=== PATIENT | female | born 1995 | race Caucasian/White ===

== ENCOUNTER 2020-02-20 19:49 | Emergency (ER) | payer SELFPAY ==
--- NOTE | 2020-02-20 19:51 | ECG_ITS ---
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 Measurements Intervals [place] Rate: 83 P: 58 RI: 147 QRS: 74 QRSD: 92 T: 38 QT: 361 QTc: 426 Interpretive Statements SINUS RHYTHM POSSIBLE RIGHT VENTRICULAR CONDUCTION DELAY [RSR (QR) IN V1/V2] No previous ECG available for comparison Electronically Signed On 02-21-2020 20:12:10 CDT by Marco Shaikh M.D. [id number]
[2020-02-20 20:00] VITALS: BP 132/83; PULSE 102; RESP 18; TEMP 37.3; O2SAT 100
[2020-02-20 20:24] LABS: Basophils # 0.1 10^3/uL (0.0-0.1); Basophils % 1.8 %; Eosinophils # 0.1 10^3/uL (0.0-0.8); Eosinophils % 2.2 %; Hematocrit 25.4 % (37.0-47.0); Hemoglobin 6.7 g/dL (11.5-15.3); Lymphocytes # 1.3 10^3/uL (0.8-4.8); Lymphocytes % 25.9 %; Mean Corpuscular HGB Conc 26.4 g/dL (30.0-36.0); Mean Corpuscular Hemoglobin 16.4 pg (28.0-34.0); Mean Corpuscular Volume 62.3 fL (81-99); Mean Platelet Volume 8.9 fL (7.4-10.4); Monocytes # 0.4 10^3/uL (0.2-0.9); Neutrophils # 3.08 10^3/uL (1.8-7.7); Neutrophils % 61.9 %; Nucleated Red Blood Cells % 0 %; Platelet Count 477 10^3/cmm (130-400); Red Blood Count 4.08 10^6/uL (4.1-5.3); Red Cell Distribution Width 17.8 % (12.1-15.1)
[2020-02-20 20:26] VITALS: BP 110/78; PULSE 90; RESP 16; O2SAT 100
--- NOTE | 2020-02-20 20:26 | ED_ITS ---
HPI - Syncope General: Chief Complaint: Syncope Stated Complaint: syncope/numbness & tingling Time Seen by Provider: 02/20/20 20:18 History of Present Illness: HPI narrative: Patient comes in with syncope and weakness dizziness over the last 2 months progressively getting worse. Has a history of anemia need for blood transfusions. Feels that she is at that point now. complaint: almost passed out Onset (ago): month(s) Associated symptoms: Reports headache(s) and lightheadedness; Deny abdominal pain, chest pain, fever(s) or nausea Review of Systems Const: Denies: fever(s), chills or body aches Eyes: Denies: change in vision or blurry vision ENMT: Denies: throat pain or nasal congestion Card: Reports: lightheadedness and other (Near syncope); Denies: chest pain or dyspnea on exertion Resp: Denies: dyspnea, productive cough or non-productive cough GI: Denies: abdominal pain, nausea or vomiting Musc: Denies: extremity pain Skin/Breast: Denies: rash Neuro: Reports: headache(s) and other (Weakness) Psych: Denies: anxiety or depression [place]/Lymph: Denies: easy bruising [facility] ED Female Reproductive History: Date of last menstrual period: 02/10/20 Physical Exam Const: COMMON NORMALS: no acute distress, average body habitus and patient oriented x3 HENMT: COMMON NORMALS: normocephalic HEAD & SCALP: normal to inspection and normocephalic FACE & SINUS: normal facial exam Eye: GENERAL EYE: appearance normal, both eyes and all related structures VISUAL ACUITY: Yes other (Pale conjunctive ) Neck/C-Spine: COMMON NORMALS: no JVD Chest: COMMONS NORMALS: normal inspection of the chest Resp: COMMON NORMALS: normal respiratory effort and clear to auscultation bilaterally AUSCULTATION: clear to auscultation bilaterally Cardio: COMMON NORMALS: no JVD, regular rate and regular rhythm RATE: regular rate RHYTHM: regular rhythm GI: COMMON NORMALS: Normal to inspection, nondistended, normoactive bowel sounds present Extremity: COMMON NORMALS: normal to inspection and full ROM Neuro: COMMON NORMALS: patient oriented x3 Course Vital Signs: Vital signs: Vital Signs Temperature 99.2 F 02/20/20 20:00 Pulse Rate 90 02/20/20 20:26 Respiratory Rate 16 07/23/20 20:26 Blood Pressure 110/78 02/20/20 20:26 Pulse Oximetry 100 02/20/20 20:26 MDM - Syncope Lab Data: Labs: Lab Results 02/20/20 Range/Units 20:15 WBC 5.0 (4.0-10.0) 10^3/ uL RBC 4.08 L (4.1-5.3) 10^6/u L Hgb 6.7 L (11.5-15.3) g/dL Hct 25.4 L (37.0-47.0) % MCV 62.3 L (81-99) fL MCH 16.4 L (28.0-34.0) pg MCHC 26.4 L (30.0-36.0) g/dL RDW 17.8 H (12.1-15.1) % Plt Count 477 H (130-400) 10^3/c mm MPV 8.9 (7.4-10.4) fL Neut % (Auto) 61.9 % Lymph % (Auto) 25.9 % [place] % (Auto) 8.0 % Eos % (Auto) 2.2 % Baso % (Auto) 1.8 % Neut # (Auto) 3.08 (1.8-7.7) 10^3/u L Lymph # (Auto) 1.3 (0.8-4.8) 10^3/u L [place] # (Auto) 0.4 (0.2-0.9) 10^3/u L Eos # (Auto) 0.1 (0.0-0.8) 10^3/u L Baso # (Auto) 0.1 (0.0-0.1) 10^3/u L Nucleated RBC % (a uto) 0 % Nucleated RBCs # 0.0 /100WBC Discharge Plan Discharge Prescriptions: No Action No Known Home Medications RF: 0 Coding Level of Care Code ED Welt Butter Hand for [employer] Fwd Exam Comprehensive
[2020-02-20 20:43] LABS: Alanine Aminotransferase 12 U/L (0-33); Albumin Level 5.1 g/dL (3.5-5.2); Alkaline Phosphatase 40 IU/L (35-105); Anion Gap 14.7 (5-19); Aspartate Amino Transferase 26 U/L (0-32); Blood Urea Nitrogen 11 mg/dL (6-20); Calcium 9.5 mg/dL (8.5-10.5); Carbon Dioxide 25 mmol/L (22-29); Chloride 101 mmol/L (98-107); Glucose 109 mg/dL (65-115); Osmolality Calculated 281 mOsm/kg (285-295); Potassium 3.7 mmol/L (3.5-5.1); Sodium 137 mmol/L (136-145); Total Bilirubin 0.2 mg/dL (0.15-1.2); Total Protein 8.1 g/dL (6.6-8.7)
[2020-02-20 20:48] VITALS: BP 119/68; PULSE 90; RESP 14; O2SAT 100
[2020-02-20] MEDS: sodium chloride 0.9% 1,000 ML 999 ML IV (21:06)
[2020-02-20 21:07] VITALS: BP 118/56; PULSE 89; RESP 18; O2SAT 93
[2020-02-20 21:55] VITALS: BP 120/67; PULSE 87; RESP 16; O2SAT 99
[2020-02-20 23:26] VITALS: BP 108/68; PULSE 87; RESP 16; O2SAT 99
[2020-02-20 23:50] LABS: HCG, Serum Qual Negative (Negative)
[2020-02-21] VITALS (18 sets, daily range): BP systolic 91–114; BP diastolic 44–75; PULSE 70–98; RESP 14–16; TEMP 36.6–37; O2SAT 97–100
[2020-02-21] MEDS: sodium chloride 0.9% 500 ML 75 ML IV (01:56)
== END 2020-02-21 06:57 | disposition home or self-care (01) ==
PROVIDERS: Emergency Medicine; Emergency Provider Nurse Practitioner Family
DX: R55 Syncope and collapse (principal)
CPT/HCPCS: 12345; 36415; 36430; 80053; 80500; 84703; 85025; 86850; 86870; 86900; 86902; 86920; 93005; 96360; 96361; 99284; J7030; J7040; P9016

== ENCOUNTER 2020-02-22 00:11 | Emergency (ER) | payer SELFPAY ==
[2020-02-22] VITALS (7 sets, daily range): BP systolic 107–126; BP diastolic 55–82; PULSE 57–69; RESP 14–18; TEMP 36.6; O2SAT 95–100; BMI 18.6
--- NOTE | 2020-02-22 00:27 | CTR_ITS ---
PROCEDURE INFORMATION: Exam: CT Head Without Contrast Exam date and time: 02/22/2020 12:30 AM Age: 24 years old Clinical indication: Patient HX: General weakness. Headache. Recent anemia. Dizziness. TECHNIQUE: Imaging protocol: Computed tomography of the head without contrast. Radiation optimization: All CT scans at this facility use at least one of these dose optimization techniques: automated exposure control; mA and/or kV adjustment per patient size (includes targeted exams where dose is matched to clinical indication); or iterative reconstruction. COMPARISON: No relevant prior studies available. RADIATION DOSE METRICS: Total DLP (mGy-cm): 656.68 FINDINGS: Brain: No acute intracranial hemorrhage or mass effect. No definite acute infarct by CT. MRI could be more sensitive/specific for detection, as clinically directed. Ventricles: Ventricle size is normal for age. Bones/joints: No definite acute skull fracture. Sinuses: Included paranasal sinuses are essentially clear. Mastoid air cells: No significant acute finding. CT/CT head wo con* [id number] IMPRESSION: 1. No acute intracranial hemorrhage or mass effect. 2. No definite acute infarct by CT, see above. 3. Other findings discussed above. Radiation Dose CTDIVOL = (mGy): DLP = 656.68 (mGy-cm)
[2020-02-22 01:08] LABS: Basophils # 0.1 10^3/uL (0.0-0.1); Basophils % 1.7 %; Eosinophils # 0.2 10^3/uL (0.0-0.8); Eosinophils % 2.2 %; Hematocrit 34.3 % (37.0-47.0); Hemoglobin 9.5 g/dL (11.5-15.3); Lymphocytes # 2.4 10^3/uL (0.8-4.8); Lymphocytes % 30.8 %; Mean Corpuscular HGB Conc 27.7 g/dL (30.0-36.0); Mean Corpuscular Hemoglobin 19.3 pg (28.0-34.0); Mean Corpuscular Volume 69.9 fL (81-99); Mean Platelet Volume 9.1 fL (7.4-10.4); Monocytes # 0.5 10^3/uL (0.2-0.9); Monocytes % 6.7 %; Neutrophils # 4.54 10^3/uL (1.8-7.7); Neutrophils % 58.5 %; Nucleated Red Blood Cells % 0 %; Platelet Count 411 10^3/cmm (130-400); Red Blood Count 4.91 10^6/uL (4.1-5.3); Red Cell Distribution Width 24.9 % (12.1-15.1); White Blood Count 7.8 10^3/uL (4.0-10.0)
[2020-02-22 01:14] LABS: HCG, Serum Qual Negative (Negative)
[2020-02-22 01:28] LABS: Add Urine Microscopic? YES; Bilirubin Urine Neg (NEGATIVE); Blood Urine 3+ (Negative); Glucose Urine UA Norm (Normal); Ketones Urine Negative (Negative); Leukocyte Esterase Urine Negative (Negative); Nitrate Urine Negative (Negative); Protein Urine Neg (Negative); RBC Urine >100 /hpf (0-2); Squamous Epithelial Cell Urine RARE (0-5); Urine Appearance Cloudy (CLEAR); Urine Color Yellow (Yellow); Urobilinogen Urine Norm (Negative); pH Urine 7 (5-7)
[2020-02-22 01:46] LABS: Alanine Aminotransferase 14 U/L (0-33); Albumin Level 4.9 g/dL (3.5-5.2); Alkaline Phosphatase 40 IU/L (35-105); Anion Gap 13.1 (5-19); Aspartate Amino Transferase 28 U/L (0-32); Blood Urea Nitrogen 7 mg/dL (6-20); Calcium 9.6 mg/dL (8.5-10.5); Carbon Dioxide 24 mmol/L (22-29); Chloride 106 mmol/L (98-107); Globulin 2.7 g/dL (1.3-4.6); Glucose 89 mg/dL (65-115); Magnesium 2.1 mg/dL (1.7-2.3); Osmolality Calculated 283 mOsm/kg (285-295); Phosphorus 2.9 mg/dL (2.5-4.5); Potassium 4.1 mmol/L (3.5-5.1); Sodium 139 mmol/L (136-145); Thyroid Stimulating Hormone 2.56 uIU/mL (0.27-4.20); Total Bilirubin 0.2 mg/dL (0.15-1.2); Total Protein 7.6 g/dL (6.6-8.7)
--- NOTE | 2020-02-22 01:50 | USR_ITS ---
PROCEDURE INFORMATION: Exam: US Nonobstetric Pelvis; Complete Exam date and time: 02/22/2020 2:32 AM Age: 24 years old Clinical indication: Other: Bleeding; Additional info: Vaginal bleeding TECHNIQUE: Imaging protocol: Transabdominal pelvic nonobstetric ultrasound. Complete exam. Real time ultrasound with image documentation. COMPARISON: CT abdomen pelvis w con* [id number] 03/13/2015 10:54 AM FINDINGS: The uterus measures 8.5 cm in length. There is no visible focal uterine mass. There is no intrauterine fluid. Endometrial thickness is 8.9 mm. Mild to moderate amount relatively sonolucent cul-de-sac fluid. fluid. The right ovary measures 35 x 22 x 27 mm, estimated volume 10.6 cc. The right ovary appears essentially unremarkable. The left ovary measures 40 x 18 x 26 mm, estimated volume 10.0 cc. The left ovary contains a 23 x 11 x 15 mm dominant follicle versus small cyst. Significance uncertain due to relatively small size. Blood flow detected in each ovary. The urinary bladder was not completely evaluated/imaged at this time. US/US pelvic complete* [id number] IMPRESSION: 1. The left ovary contains a 23 x 11 x 15 mm dominant follicle versus small cyst. Significance uncertain due to relatively small size. 2. Mild to moderate amount relatively sonolucent cul-de-sac fluid. fluid. 3. Other details discussed above.
[2020-02-22] MEDS: ondansetron 2 mg/ML SDV 2 mL 4 MG IVP (02:23)
[2020-02-22 02:31] LABS: C Reactive Protein 0.3 mg/L (0.0-4.9)
[2020-02-22 02:33] LABS: Ferritin 5 ng/mL (15-150)
--- NOTE | 2020-02-22 03:55 | MRR_ITS ---
PROCEDURE INFORMATION: Exam: MR Head Without Contrast Exam date and time: 02/22/2020 3:56 AM Age: 24 years old Clinical indication: Dizziness; Additional info: Dysarthria, R sided weakness TECHNIQUE: Imaging protocol: MR of the head without contrast. COMPARISON: CT head wo con* [id number] 02/22/2020 1:05 AM FINDINGS: Brain: Normal. No acute infarct. No hemorrhage. No significant white matter disease. No edema. Ventricles: Normal. No ventriculomegaly. Bones/joints: Unremarkable. Sinuses: Normal as visualized. No acute sinusitis. Mastoid air cells: Normal as visualized. No mastoid effusion. Orbits: Unremarkable. Soft tissues: Unremarkable. MR/MR head wo con* [id number] IMPRESSION: No acute findings.
--- NOTE | 2020-02-22 04:35 | PC.NURSE ---
back from MRI
[2020-02-22 05:39] LABS: Add Urine Culture? Yes
--- NOTE | 2020-02-23 02:34 | W.ED.WEAKNES ---
HPI - Weakness General: Chief complaint: Weakness Stated complaint: recheck/was here yesterday/nausea Time Seen by Provider: 02/22/20 00:50 History of Present Illness: HPI Narrative: 4-year-old female presents with generalized weakness. She was here hours or so prior with similar symptoms. She had generalized weakness, more pronounced on the right side of her body. She was also slurring some speech, and speaking quite slowly. She is very tired, and her family was concerned symptoms were getting worse. They brought her in tonight for recheck. Last night she received 2 units of packed red blood cells for a hemoglobin of 6.7 or so. MD Complaint: generalized weakness, focal weakness and numbness Onset (ago): day(s) Duration: constant Location: generalized, RUE and RLE Severity: moderate Quality: tingling and numbness Relieving factors: none Exacerbating factors: exertion Context: recent illness and history of similar Associated symptoms: Reports headache(s), nausea and short of breath; Denies chest pain, confusion, diaphoresis, dysuria or vomiting Review of Systems Const: Denies: diaphoresis Eyes: Denies: change in vision or blurry vision ENMT: Denies: swelling of lips/tongue, change in hearing, post nasal drip or sinus pain Card: Reports: dyspnea on exertion; Denies: chest pain, palpitations, irregular heart rhythm or edema Resp: Reports: dyspnea; Denies: productive cough, non-productive cough or wheezing GI: Reports: nausea; Denies: vomiting : Reports: vaginal bleeding; Denies: dysuria or hematuria Musc: Denies: neck pain or joint warmth Skin/Breast: Denies: rash, pruritus or erythema Neuro: Reports: headache(s); Denies: confusion Psych: Denies: anxiety, visual hallucinations or auditory hallucinations [facility] Female Reproductive History: Date of last menstrual period: 02/10/20 Physical Exam Const: GENERAL APPEARANCE: well developed ORIENTATION/CONSCIOUSNESS: Yes oriented to person, Yes oriented to place and Yes oriented to time HENMT: COMMON NORMALS: normocephalic, external ears normal and Normal external nose present HEAD & SCALP: normocephalic FACE & SINUS: normal facial exam NOSE: Normal external nose present and No nasal discharge present EXTERNAL EAR: Yes external ears normal MOUTH: tongue normal Eye: COMMON NORMALS: Equal, round and reactive pupils present, EOMs intact bilaterally and conjunctivae normal EYELID: eyelids normal CONJUNCTIVA: Yes conjunctivae normal PUPIL: Yes Equal, round and reactive pupils present Neck/C-Spine: COMMON NORMALS: full ROM GENERAL: No tracheal deviation CERVICAL SPINE: Yes normal cervical lordosis and No Cervical spine tenderness Chest: COMMONS NORMALS: normal inspection of the chest CHEST: No tenderness Resp: COMMON NORMALS: clear to auscultation bilaterally EFFORT & INSPECTION: No tachypneic, No respiratory distress, No retractions, No uses accessory muscles and No tracheal deviation AUSCULTATION: clear to auscultation bilaterally, no rhonchi, no wheezes and lung sounds not diminished Cardio: COMMON NORMALS: regular rate and regular rhythm RATE: regular rate RHYTHM: regular rhythm HEART SOUNDS: no murmurs PERIPHERAL PULSES: radial pulses present GI: INSPECTION: No abdominal distension AUSCULTATION: No Hyperactive bowel sounds present and No Hypoactive bowel sounds present PALPATION: No Guarding due to palpation present (GI) and No Rigid due to palpation PERCUSSION: no dullness to percussion and no tympanic to percussion Neuro: SENSORIUM/ORIENTATION: Yes oriented to person, Yes oriented to place and Yes oriented to time CRANIAL NERVES: Yes CN normal except as noted COORDINATION/BALANCE: [id number] test normal SPEECH: abnormal speech (Mild dysarthria) GAIT: Yes Unable to assess gait SENSORY EXAM: No sensory level loss detected MOTOR EXAM: Pronator motor function not present, Normal motor muscle tone present throughout and Motor abnormalities not present COORDINATION: [id number] test normal Psych: COMMON NORMALS: mental status grossly normal Skin: COMMON NORMALS: no rashes or lesions noted GENERAL SKIN EXAM: no rashes or lesions noted Course Vital Signs: Vital signs: Vital Signs Temperature 97.9 F 02/22/20 00:34 Pulse Rate 64 02/22/20 06:07 Respiratory Rate 14 02/22/20 06:07 Blood Pressure 110/64 02/22/20 06:07 Pulse Oximetry 95 02/22/20 06:07 MDM - Weakness MDM Narrative: Medical decision making narrative: 24-year-old female. Her hemoglobin was quite low last night. It is risen appropriately after 2 units of PRBCs given last night. Her hemoglobin is now 9.5. Platelet count is mildly elevated. Her CT is negative for any infarct, or hemorrhage. Her laboratory is otherwise benign. Her only quantifiable neurological symptom is some mild dysarthria currently. She does state that her right side feels heavier than her left. Her NIH scale is essentially a 1. She will be allowed home with close observation by her family. They know to return for any worsening symptoms. Lab Data: Labs: Lab Results 02/22/20 02/22/20 02/22/20 Range/Units 00:58 00:58 00:58 WBC 7.8 (4.0-10.0) 10^3/ uL RBC 4.91 (4.1-5.3) 10^6/u L Hgb 9.5 L (11.5-15.3) g/dL Hct 34.3 L (37.0-47.0) % MCV 69.9 L (81-99) fL MCH 19.3 L (28.0-34.0) pg MCHC 27.7 L (30.0-36.0) g/dL RDW 24.9 H (12.1-15.1) % Plt Count 411 H (130-400) 10^3/c mm MPV 9.1 (7.4-10.4) fL Neut % (Auto) 58.5 % Lymph % (Auto) 30.8 % [place] % (Auto) 6.7 % Eos % (Auto) 2.2 % Baso % (Auto) 1.7 % Neut # (Auto) 4.54 (1.8-7.7) 10^3/u L Lymph # (Auto) 2.4 (0.8-4.8) 10^3/u L [place] # (Auto) 0.5 (0.2-0.9) 10^3/u L Eos # (Auto) 0.2 (0.0-0.8) 10^3/u L Baso # (Auto) 0.1 (0.0-0.1) 10^3/u L Nucleated RBC % (a uto) 0 % Nucleated RBCs # 0.0 /100WBC Sodium 139 (136-145) mmol/L Potassium 4.1 (3.5-5.1) mmol/L Chloride 106 (98-107) mmol/L Carbon Dioxide 24 (22-29) mmol/L Anion Gap 13.1 (5-19) BUN 7 (6-20) mg/dL Creatinine 0.7 (0.5-0.9) mg/dL GFR Calculation 102.0 (90-130) mL/min Glucose 89 (65-115) mg/dL Calculated Osmolal ity 283 L (285-295) mOsm/k g Calcium 9.6 (8.5-10.5) mg/dL Phosphorus 2.9 (2.5-4.5) mg/dL Magnesium 2.1 (1.7-2.3) mg/dL Ferritin (15-150) ng/mL Total Bilirubin 0.2 (0.15-1.2) mg/dL AST 28 (0-32) U/L ALT 14 (0-33) U/L Alkaline Phosphata se 40 (35-105) IU/L C-Reactive Protein 0.3 (0.0-4.9) mg/L Total Protein 7.6 (6.6-8.7) g/dL Albumin 4.9 (3.5-5.2) g/dL Globulin 2.7 (1.3-4.6) g/dL TSH 2.56 (0.27-4.20) uIU/ mL HCG, Qual Negative (Negative) Urine Color (Yellow) Urine Appearance (CLEAR) Urine pH (5-7) Ur Specific Gravit y (1.005-1.030) Urine Protein (Negative) Urine Glucose (UA) (Normal) Urine Ketones (Negative) Urine Blood (Negative) Urine Nitrate (Negative) Urine Bilirubin (NEGATIVE) Urine Urobilinogen (Negative) mg/dL Ur Leukocyte Katya ase (Negative) Urine RBC (0-2) /hpf Urine WBC (0-5) /hpf Ur Squamous Epith Cells (0-5) Amorphous Sediment Urine Bacteria (NONE) 02/22/20 02/22/20 Range/Units 00:58 01:13 WBC (4.0-10.0) 10^3/ uL RBC (4.1-5.3) 10^6/u L Hgb (11.5-15.3) g/dL Hct (37.0-47.0) % MCV (81-99) fL MCH (28.0-34.0) pg MCHC (30.0-36.0) g/dL RDW (12.1-15.1) % Plt Count (130-400) 10^3/c mm MPV (7.4-10.4) fL Neut % (Auto) % Lymph % (Auto) % [place] % (Auto) % Eos % (Auto) % Baso % (Auto) % Neut # (Auto) (1.8-7.7) 10^3/u L Lymph # (Auto) (0.8-4.8) 10^3/u L [place] # (Auto) (0.2-0.9) 10^3/u L Eos # (Auto) (0.0-0.8) 10^3/u L Baso # (Auto) (0.0-0.1) 10^3/u L Nucleated RBC % (a uto) % Nucleated RBCs # /100WBC Sodium (136-145) mmol/L Potassium (3.5-5.1) mmol/L Chloride (98-107) mmol/L Carbon Dioxide (22-29) mmol/L Anion Gap (5-19) BUN (6-20) mg/dL Creatinine (0.5-0.9) mg/dL GFR Calculation (90-130) mL/min Glucose (65-115) mg/dL Calculated Osmolal ity (285-295) mOsm/k g Calcium (8.5-10.5) mg/dL Phosphorus (2.5-4.5) mg/dL Magnesium (1.7-2.3) mg/dL Ferritin 5 L (15-150) ng/mL Total Bilirubin (0.15-1.2) mg/dL AST (0-32) U/L ALT (0-33) U/L Alkaline Phosphata se (35-105) IU/L C-Reactive Protein (0.0-4.9) mg/L Total Protein (6.6-8.7) g/dL Albumin (3.5-5.2) g/dL Globulin (1.3-4.6) g/dL TSH (0.27-4.20) uIU/ mL HCG, Qual (Negative) Urine Color Yellow (Yellow) Urine Appearance Cloudy (CLEAR) Urine pH 7 (5-7) Ur Specific Gravit y 1.010 (1.005-1.030) Urine Protein Neg (Negative) Urine Glucose (UA) Norm (Normal) Urine Ketones Negative (Negative) Urine Blood 3+ H (Negative) Urine Nitrate Negative (Negative) Urine Bilirubin Neg (NEGATIVE) Urine Urobilinogen Norm (Negative) mg/dL Ur Leukocyte Katya ase Negative (Negative) Urine RBC >100 H (0-2) /hpf Urine WBC 10-15 H (0-5) /hpf Ur Squamous Epith Cells Rare (0-5) Amorphous Sediment Not Reportable Urine Bacteria None (NONE) Discharge Plan Discharge Patient Disposition: Home Clinical Impression: Anemia Qualifiers: Anemia type: iron deficiency Iron deficiency anemia type: chronic blood loss Qualified Code(s): D50.0 - Iron deficiency anemia secondary to blood loss (chronic) Condition: Stable Prescriptions: No Action No Known Home Medications RF: 0 Discharge Orders: Discharge Order (Routine); Ordered 02/22/20 Ordered By: Srinivas Morales Discharge Diet: Usual diet Discharge Activity: Increase activity as tolerated Patient Instructions: Anemia (ED) Activity Restrictions/Additional Instructions: Return for worsening weakness, worsening trouble with speech, continued heavy bleeding, other concerning symptoms. You should have your blood count checked again in 2 to 3 days. Discharge Date/Time: 02/22/20 06:11 Coding Level of Care Code ED Optometrist/Practice Owner for Maria Guadalupe Gómez
--- NOTE | 2020-02-26 12:15 | PC.SOCIAL ---
Patient called me and asked about referral to Hematology. She indicates a few years ago she saw Dr Estrella for anemia. CM did not receive referral and DC information indicates follow up with PCP and obtain referral for Hematology. Discussed this with patient. She does not have a PCP and prefers to see Dr Estrella since her only concern is the anemia. Spoke with Shayla at Hematology/ Oncology. They will submit a request for new patient referral and once appointment is scheduled they will call patient. This is a new patient referral since patient has not been seen by Dr Estrella since before 2011. Updated patient and provided her the clinic number so she can call them next week if have not heard anything by Mon or . She verbalized understanding.
== END 2020-02-22 06:11 | disposition home or self-care (01) ==
PROVIDERS: Emergency Provider Emergency Medicine
DX: D50.0 Iron deficiency anemia secondary to blood loss (chronic) (principal)
CPT/HCPCS: 12345; 70450; 70551; 76856; 80053; 81001; 82728; 83735; 84100; 84443; 84703; 85025; 86140; 87086; 96374; 96375; 99283; 99284; J2405

== ENCOUNTER 2020-03-05 13:05 | Outpatient (CLI) | payer SELFPAY ==
--- NOTE | 2020-03-05 15:27 | ONC CON_ITS ---
Dr. Estrella New Patient Note Patient: Teresa Ramsey Unit #: [id number]: 1995 Dicatated By: Cruz Estrella M.D.Date of Visit: Mar 05, 2020 Onc MED New Patient/Consult Referring Physician: Srinivas Morales M.D. Chief Complaint: Anemia. History of Present Illness: This is a 24 year-old woman with iron deficiency anemia. She indicates that she has always been anemic. I had actually seen her back in September 2011. Her laboratory studies were consistent with iron deficiency. Her B12 and folate levels were normal, and she had negative screening tests for celiac disease. As she had not been responding to oral iron replacement, she was given parenteral iron replacement with 5 infusions of Venofer. She had a good response with a repeat CBC in April 2012 showing normal hemoglobin at 13.2 g. Thereafter she was lost to follow-up, but in reviewing her record, she did receive another course of parenteral iron replacement with Venofer in 2017. On 02/22/2020 she had presented to the emergency room with multiple complaints including extreme fatigue/weakness, difficulty staying awake, and memory loss. She was found to be severely anemic, hemoglobin 6.7 grams and hematocrit 25.4%. The red cell indices were severely hypochromic/microcytic. The white blood cell count was 5000 and the platelet count was 477,000. Her ferritin was low at 5 ng/mL, consistent with iron deficiency. She was transfused 2 units PRBC. She is seen now for further management of the anemia. She has been feeling better since the transfusion, though she continues to have significant fatigue. She has still been working full-time. ECOG score is 1. She complains that she has no appetite, and she has been throwing up a lot, mainly after eating. She says she has vomiting on a daily basis. She has had significant weight loss. She has not had fever. She tends to feel a little hot and have sweating at night. She has been told she has glaucoma in her right eye, but she has had no treatment for it. She reports having sinus drainage all the time, and she has some soreness in her neck and throat and some difficulty swallowing. She has some cough, but not terrible. She does not complain of shortness of breath. She sometimes has a pressure-like discomfort in the substernal area. She has not been having heartburn or other obvious GERD symptoms. She has had ongoing problems with constipation for at least several months. She has urinary frequency, but with small volume voids. Her periods are irregular, but generally light. She has no significant joint or bone pain. She reports having headaches occasionally, mainly on the right side. She frequently feels lightheaded, but mainly with positional changes. She sometimes has numbness in her right hand. She has no other focal neurologic symptoms. Past Medical History: Her medical history includes anemia, glaucoma, and vitiligo. She has a history of history of eczema and mild asthma. Past Surgical History: Her only surgery was an appendectomy. Medications: Iron 1 Tablet (of 325 (65 fe) mg) Oral t.i.d. Allergies: No Known Allergies. Social History: Ms. Ramsey is . She is employed as an EMT. She has a history of smoking for the past year, but only 1/4 pack of cigarettes daily. She has just occasional alcohol use. Family History: Father is in good health at age 55. Her mother is still living at age 45. She has coronary artery disease, and she has a pacemaker. A 27-year-old sister has rheumatoid arthritis. Her maternal grandmother had breast cancer. Review Of Symptoms: Constitutional - Her energy is low, but she is working full-time. Her appetite has decreased and her weight is down approximately 16 pounds. No fevers. She feels hot and has sweating nearly every night. ECOG score is 1, Eyes - She wears glasses. She has been told she has glaucoma in her right eye, ENMT - She has chronic sinus congestion/drainage. No mouth sores. She's had a sore throat for about a month. She has some difficulty swallowing. She has noticed a decrease in her hearing, Hematologic/Lymphatic - No abnormal bruising or bleeding, Respiratory - She has occasional shortness of breath. No cough. No pleuritic pain or hemoptysis, Cardiovascular - She has been having sub-sternal pain. The episodes lasts about 15-20 minutes, described as a pressure feeling. No palpitations, Gastrointestinal - She has been having nausea with vomiting. No heartburn or acid reflux. No diarrhea. She has been having some constipation for a few months. No blood in the stool or black stools, Genitourinary (F) - No dysuria or hematuria. She has urinary frequency but she does not void much at a time. No urgency or incontinence. Her menstrual periods are irregular but light, Musculoskeletal - No joint or bone pain, Integumentary - She has vitiligo, Neurologic - She has occasional right sided headaches. She has frequent episodes of feeling lightheaded. She has numbness and tingling in her right hand. No other focal neurologic symptoms, Psychiatric - She has some anxiety and depression. She does not sleep well. Vital Signs: Performed on Mar 05, 2020 13:44: 0, 19.41, 1.50 sq.m, 63.00 in, 100 %, 80 /min, 18 /min, 119/67 mm(hg), 98.1 F (LOW), and 109.6 lbs (HIGH). Physical Examination: Constitutional - She looks pretty good generally, though she does appear somewhat pale, Eyes - Sclerae nonicteric. Conjunctivae clear, ENMT - No lesions noted in the oral cavity, Neck - No mass or thyromegaly, Hematologic/Lymphatic - No cervical, clavicular, or axillary adenopathy, Respiratory - Lungs are clear with good air movement bilaterally, Cardiovascular - Heart rhythm is irregular. There is no murmur, gallop, or rub noted, Abdomen - Soft and non-tender. Liver and spleen are not enlarged. There is no abdominal mass or ascites noted and there is no inguinal adenopathy, Back/Spine - No spine or CVA tenderness noted, Extremities - No edema. Pedal pulses are palpable bilaterally, Integumentary - She has vitiligo, most prominently in the lower extremities. There are no suspicious skin lesions noted, Neurologic - No focal neurologic deficits noted. Impression: 1. Patient with recurrent iron deficiency anemia. This appears to be due predominantly to inadequate oral iron absorption. 2. She has had poor response to and poor tolerance for oral iron supplementation. She has had previous parenteral iron replacement with Venofer in 2011 and in 2017. 3. She has significant GI symptoms including anorexia, nausea/vomiting, and constipation. She also has had significant weight loss. Her previous evaluation included negative screening for celiac sprue. 4. She has had evidence for underlying autoimmune disease including vitiligo and a previous history of eczema and asthma. 5. She reportedly has glaucoma involving the right eye. 6. She has anxiety/depression. Plan: The laboratory findings and clinical implications were reviewed with the patient. She has obvious iron deficiency anemia. As noted, it appears to be due predominantly to inadequate oral iron absorption. She has had poor tolerance for oral iron, and she is not had a significant response to it. As such, she will be scheduled to come in for further parenteral iron replacement with 2 infusions of Injectafer. She will have a 1-month interval follow-up visit, and she will have further evaluation at that time, as indicated. In the meantime, I will have her start a bowel regimen with senna/docusate, and I also will have her start pantoprazole 40 mg daily. Signed By: Cruz Estrella M.D. <<Signature on File>>
== END 2020-03-05 13:06 | disposition home or self-care (01) ==
LOC: ONCMED 13:06
PROVIDERS: Visit Provider Internal Medicine Medical Oncology
DX: D50.9 Iron deficiency anemia, unspecified (principal); K59.00 Constipation, unspecified; R11.2 Nausea with vomiting, unspecified; R63.4 Abnormal weight loss; R63.0 Anorexia; F41.8 Other specified anxiety disorders; F17.210 Nicotine dependence, cigarettes, uncomplicated; L80 Vitiligo; Z87.09 Personal history of other diseases of the respiratory system
CPT/HCPCS: 99205